=== PATIENT | female | born 2000 ===

== ENCOUNTER → 2025-03-01 | Outpatient (REF) | payer OTHER ==
[2025-03-01 14:19] LABS: BASO # 0.0 10^3/uL (0.0-0.2); BASO % 0.4 % (0.0-1.0); EOS # 0.1 10^3/uL (0.0-0.5); EOS % 0.8 % (0.0-3.0); LYMPH # 2.3 10^3/uL (1.5-5.0); LYMPH % 32.1 % (24.0-44.0); MONO # 0.4 10^3/uL (0.0-0.8); MONO % 5.8 % (2.0-8.0); NEUTROPHILS # 4.4 10^3/uL (1.5-8.5); NEUTROPHILS % 60.8 % (36.0-66.0); PLATELET COUNT, AUTOMATED 361 10^3/uL (150-450)
[2025-03-01 14:52] LABS: ESTIMATED AVERAGE GLUCOSE 140.0 MG/DL (60-110); HIV 1&2 SCREEN NEGATIVE (NEGATIVE)
[2025-03-01 14:58] LABS: HEPATITIS C VIRUS ABY INDEX < 0.02 INDEX (<0.8)
[2025-03-01 15:03] LABS: CALCIUM LEVEL 9.5 MG/DL (8.5-10.1); CARBON DIOXIDE LEVEL 26 MMOL/L (20-31); CHLORIDE LEVEL 102 MMOL/L (98-107); CHOLESTEROL LEVEL 363 MG/DL (<200); CHOLESTEROL RISK RATIO 14.52 (<5); CREATININE FOR GFR 0.48 MG/DL (0.55-1.30); GLOMERULAR FILTRATION RATE > 90.0 (>60); NON-HDL-C 338.0 MG/DL; POTASSIUM SERUM 4.0 MMOL/L (3.5-5.1); SODIUM LEVEL 139 MMOL/L (136-145); TRIGLYCERIDES LEVEL 2072 MG/DL (<150)
== END ==
LOC: M LAB REF 13:49
PROVIDERS: ATTEND Nurse Practitioner Family
DX: E66.811 Obesity, class 1 (principal); R53.83 Other fatigue; Z11.9 Encounter for screening for infectious and parasitic diseases, unspecified